=== PATIENT | male | born 1990 | race Caucasian/White ===

== ENCOUNTER 2024-03-15 12:35 | Emergency (ER) | payer OTHER ==
[~2024-03-15] VITALS: Ht 165.1 cm; Wt 70.9 kg
[~2024-03-15 12:35] MED LIST: NO HOME MEDICATIONS
[2024-03-15 16:04] VITALS: BP 143/84; PULSE 61; TEMP 98.2
== END 2024-03-15 16:04 | disposition home or self-care (01) ==
LOC: COL.ER 12:35
DX: S05.11XA Contusion of eyeball and orbital tissues, right eye, initial encounter (principal); W01.198A Fall on same level from slipping, tripping and stumbling with subsequent striking against other object, initial encounter